=== PATIENT | male | born 1985 | race Caucasian/White ===

== ENCOUNTER 2020-12-04 09:02 | Outpatient (REF) | payer OTHER, SELFPAY ==
[2020-12-04 09:54] LABS: Hematocrit 42.3 % (42-52); Hemoglobin 14.9 g/dl (14.0-18.0); Mean Corpuscular HGB Conc 35.2 g/dl (31.0-36.0); Mean Corpuscular Volume 88.1 fL (80-98); Mean Platelet Volume 10.6 fL (9.4-12.4); Platelet Count 267 X10*3/uL (160-400); Red Cell Distribution Width 11.8 % (11.0-16.0); White Blood Count 6.1 X10*3/uL (4.8-10.8)
[2020-12-04 10:10] LABS: Alanine Aminotransferase 43 U/L (0-40); Albumin Level 4.6 g/dL (3.5-5.0); Alkaline Phosphatase 66 U/L (39-117); Anion Gap 12 (12-20); Aspartate Amino Transferase 31 U/L (5-37); Bilirubin Total 1.8 mg/dL (0.0-1.0); Blood Urea Nitrogen 15 mg/dL (9-16); Calcium 10.1 mg/dL (8.4-10.2); Carbon Dioxide 27 mmol/L (22-29); Chloride 103 mmol/L (96-108); Cholesterol 229 mg/dL; Estimated Glomerular Filt Rate > 60; Glucose Fasting 108 mg/dL (60-99); HDL Cholesterol 47 mg/dL; LDL Cholesterol Calculated 105 mg/dl; Potassium 4.5 mmol/L (3.3-5.1); Sodium 137 mmol/L (135-145); Triglycerides 389 mg/dL
[2020-12-04 13:35] LABS: Creatinine Urine 125.65 mg/dL; Microalbumin Urine < 5.0 mg/L
== END 2020-12-04 09:03 | disposition home or self-care (01) ==
LOC: HO.LAB 09:02
PROVIDERS: PCP Physician Assistant; Visit Provider Physician Assistant
DX: I10 Essential (primary) hypertension (principal)
CPT/HCPCS: 36415; 80053; 80061; 82043; 84443; 85027

== ENCOUNTER 2022-02-24 09:33 | Outpatient (REF) | payer OTHER, SELFPAY ==
[2022-02-24 10:56] LABS: Hematocrit 47.6 % (42.0-52.0); Hemoglobin 16.4 g/dl (14.0-18.0); Mean Corpuscular HGB Conc 34.5 g/dl (31.0-36.0); Mean Corpuscular Hemoglobin 31.2 pg (27.0-33.0); Mean Corpuscular Volume 90.5 fL (80.0-98.0); Mean Platelet Volume 10.7 fL (9.4-12.4); Platelet Count 271 X10*3/uL (160-400); Red Blood Count 5.26 X10*6/uL (4.60-5.80); Red Cell Distribution Width 11.8 % (11.0-16.0); White Blood Count 6.4 X10*3/uL (4.8-10.8)
[2022-02-24 11:27] LABS: Estimated Average Glucose 105 mg/dL; Hemoglobin A1c % 5.3 %
[2022-02-24 11:38] LABS: Alanine Aminotransferase 79 U/L (0-40); Albumin Level 4.7 g/dL (3.5-5.0); Alkaline Phosphatase 62 U/L (39-117); Anion Gap 13 (12-20); Aspartate Amino Transferase 44 U/L (5-37); Bilirubin Total 1.4 mg/dL (0.0-1.0); Blood Urea Nitrogen 16 mg/dL (9-16); Calcium 10.1 mg/dL (8.4-10.2); Carbon Dioxide 30 mmol/L (22-29); Chloride 102 mmol/L (96-108); Cholesterol 277 mg/dL; Estimated Glomerular Filt Rate > 60; Glucose Fasting 107 mg/dL (60-99); HDL Cholesterol 55 mg/dL; LDL Cholesterol Calculated 147 mg/dl; Potassium 4.5 mmol/L (3.3-5.1); Sodium 140 mmol/L (135-145); Total Protein 7.4 g/dL (6.5-8.0); Triglycerides 375 mg/dL
[2022-02-24 12:07] LABS: Creatinine Urine 300.69 mg/dL; Microalbum/Creatinine Ratio Ur 3.3 ug/mg cr
== END 2022-02-24 09:34 | disposition home or self-care (01) ==
LOC: HO.LAB 09:33
PROVIDERS: PCP Physician Assistant; Visit Provider Physician Assistant
DX: I10 Essential (primary) hypertension (principal); R14.0 Abdominal distension (gaseous); E78.2 Mixed hyperlipidemia; E66.09 Other obesity due to excess calories; Z68.30 Body mass index [BMI] 30.0-30.9, adult
CPT/HCPCS: 36415; 80053; 80061; 82043; 83036; 85027

== ENCOUNTER 2022-10-06 11:23 | Outpatient (AMB) | payer OTHER, SELFPAY ==
[2022-10-06 11:24] VITALS: BP 130/96; PULSE 83; O2SAT 96; BMI 31.5
--- NOTE | 2022-10-06 11:24 | A.OFFPC_ITS ---
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 Accompanied by: Self / Same As Patient Allergies cephalexin [From Keflex] Adverse Reaction (Mild, Verified 10/06/22 11:44) Rash sulfamethoxazole [From Bactrim] Adverse Reaction (Verified 10/06/22 11:44) Rash trimethoprim [From Bactrim] Adverse Reaction (Verified 10/06/22 11:44) Rash Medication List - Last Reconciled 10/06/22 by Luis Manuel David PA-C diclofenac sodium 50 mg PO BID 15 days lisinopril 30 mg PO DAILY metoprolol succinate ER 100 mg PO DAILY omeprazole 20 mg PO DAILY 30 days valacyclovir (Valtrex) 500 mg PO BID 6 days Tobacco use date assessed: 10/06/22 Dental Screening Dental Screen Date: 10/06/22 Did you have a dental visit in the last 12 months?: No Did you have a dental problem in the last 6 months where you did not have access to dental care?: No Was dental information given to patient?: No HPI Annual PE HPI Details Patient is a 37-year-old male here today for routine annual physical? Patient has a past medical history significant for obesity, hypertriglyceridemia, generalized anxiety disorder., hypertension. .. Hypertension:? Blood pressure improved today in office.? Continues on lisinopril 30 and metoprolol 100 mg daily.? He feels his anxiety is elevated due to his anxiety.? Monitors blood pressure at home at times and reports 120s to 130 systolic. Otherwise denies any headache, dizziness, shortness of breath on exertion or vision issues. Does report times of anxiety before social events. .. Left knee ligamentous issue:? Has recently had ACL reconstructive surgery on his left knee, currently in physical therapy and returning back to work in near future. .. Concern--> ?Having anxiety worse as of late , also has been reducing his alcohol intake which may be contributing to worsening anxiety. He does speak to his girlfriend about his anxiety as well. Not interested in speaking with a mental therapist at this time. Not interested in daily medication for anxiety though is willing to try a as needed medication .. Vaccines: Up-to-date with tetanus vaccine, declines COVID/ flu vaccine. Laboratory Tests 02/24/22 09:56 AST 44 H ALT 79 H Triglycerides 375 Cholesterol 277 [facility] Social History (Updated 10/06/22 @ 11:47 by Luis Manuel David PA-C) Housing: House Alcohol intake: current Alcohol intake frequency: a few times a week Alcohol type: beer and hard liquor e-Cigarette/Vaping Use: Never Used Second Hand Smoke Exposure: Yes service: No Current occupational status: employed Current occupation: machinest Cognitive needs: No Hearing needs: No Vision needs: No Questionnaire PHQ-9 Over the last 2 weeks, how often have you been bothered by any of the following problems? 1. Little interest or pleasure in doing things: not at all 2. Feeling down, depressed, or hopeless: not at all 3. Trouble falling or staying asleep, or sleeping too much: not at all 4. Feeling tired or having little energy: not at all 5. Poor appetite or overeating: not at all 6. Feeling bad about yourself - or that you are a failure or have let yourself or your family down: not at all 7. Trouble concentrating on things, such as reading the newspaper or watching television: not at all 8. Moving or speaking so slowly that other people could have noticed. Or the opposite - being so fidgety or restless that you have been moving around a lot more than usual: not at all 9. Thoughts that you would be better off or of hurting yourself in some way: not at all Total score: 0 Depression Screening Interpretation: Negative 17568 - PHQ-9 Billing: Yes Source: Developed by Drs. Eliazar English, Manju Pisano, Noé Riley and colleagues, with an educational dorian from [employer]. Thrive Questionnaire Date Thrive assessed: 10/06/22 I am a: Patient What is your living situation today?: I have a steady place to live Within the past 12 months, did the food you bought not last and you didn't have the money to get more?: Never true Within the past 12 months, did you worry whether your food would run out before you got money to buy more?: Never true Do you have trouble paying for medicines?: No Do you have trouble getting transportation to medical appointments?: No Do you have trouble paying your heating and electricity bill?: No Do you have trouble taking care of your child, family member or friend?: No Do you have trouble with day-to-day activities such as bathing, preparing meals, shopping, managing finances, etc.?: No Are you currently unemployed and looking for a job?: No Are you interested in more education?: No Please select the resources that you would like help with: None Currently or been in a relationship where the following occur: no concerns reported AUDIT C Alcohol Use Questionnaire (AUDIT-C) 1. How often do you have a drink containing alcohol?: Monthly or less 2. How many drinks containing alcohol do you have on a typical day when you are drinking?: 1 or 2 3. How often do you have six or more drinks on one occasion?: Never Total Score: 1 RAFITA-7 AMB Questionnaire RAFITA-7 Date RAFITA - 7 assessed: 10/06/22 Feeling nervous, anxious, or on edge: 0 = Not at all Not being able to stop or control worryin = Not at all Worrying too much about different things: 0 = Not at all Trouble relaxin = Not at all Being so restless that it is hard to sit still: 0 = Not at all Becoming easily annoyed or irritable: 0 = Not at all Feeling afraid as if something awful might happen: 0 = Not at all Total RAFITA-7 score (0-4 normal; 5-9 mild; 10-14 moderate; 15-21 severe): 0 Source: Developed by Drs. Eliazar English, Manju Pisano, Noé Riley and colleagues, with an educational dorian from [employer]. RAFITA-7 Assessment Billing RAFITA-7 Assessment Tool: RAFITA-7 Assessment 58906 Review of Systems Const Denies body aches, Denies chills, Denies excessive sweating, Denies fatigue, Denies fever(s) and Denies headache(s) Eyes Denies blurry vision ENT Denies dysphagia, Denies vertigo, Denies dizziness, Denies headache(s), Denies hearing loss and Denies tinnitus Card Denies chest pain, Denies chest pain with activity, Denies syncope, Denies irregular heart rhythm and Denies dyspnea Resp Denies chest congestion, Denies cough, Denies hemoptysis, Denies dyspnea and Denies wheezing GI Denies abdominal pain, Denies melena, Denies hematochezia, Denies coffee ground emesis, Denies dysphagia, Denies diarrhea, Denies nausea and Denies vomiting Denies difficulty urinating, Denies dysuria, Denies urinary frequency, Denies urinary hesitancy and Denies urinary urgency Musc Denies arthralgias, Denies limited range of motion, Denies muscle cramps and Denies muscle weakness Skin/Breast Denies rash and Denies skin ulcer Neuro Denies Abnormal speech present, Denies confusion, Denies vertigo, Denies dizziness, Denies syncope, Denies headache(s), Denies memory loss and Denies seizure-like activity Psych Reports anxiety, Denies confusion, Denies depression, Denies memory loss, Reports panic attacks and Denies paranoia Endo Denies excessive sweating, Denies fatigue, Denies flushing, Denies polydipsia and Denies polyuria Aller/Immun Denies wheezing Physical exam (Primary Care) Vital Signs: Last Vital Signs Pulse 83 10/06/22 11:24 BP 130/96 H 10/06/22 11:24 Pulse Ox 96 10/06/22 11:24 Oxygen Delivery Method Room Air 10/06/22 11:24 BMI result Body Mass Index 31.5 BMI Assessment/Plan discussion: High Tobacco/Smoking Status: Tobacco use Status Tobacco use date assessed 10/06/22 10/06/22 11:29 Patient Tobacco Use Status 10/06/22 11:47 e-Cigarette/Vaping Use Never Used 10/06/22 11:47 PHQ-9: PHQ-9 Score PHQ-9: Total score 0 10/06/22 11:51 Depression Screening Interpretation: Negative Thrive Assessment: Date of Thrive Assessment Date Thrive assessed 10/06/22 10/06/22 11:29 Currently or been in a relationship where the following occur: no concerns reported Const Other: Obese General: cooperative, comfortable, no acute distress, alert and awake; No confusion Orientation/consciousness: oriented to person, oriented to place, patient oriented x3 and No confusion HENMT Head: Yes normocephalic Ears: external ears normal and TM's normal bilaterally Face and sinus: No sinus tenderness Mouth: Normal oral and palatal mucosa present and tongue normal Teeth and gingiva: dentition normal and gingiva normal Throat: Yes posterior oropharynx normal, Yes tonsils normal and Yes uvula midline Eyes Conjunctivae: conjunctivae normal Sclerae: sclerae normal Pupils: Equal, round and reactive pupils present EOM: EOMs intact bilaterally Direct Ophthalmoscopy: No no photophobia Neck Neck: Yes no lymphadenopathy, No tender and Yes no JVD Thyroid: Thyroid normal Carotids: no bruits Chest Chest palpation & inspection: no tenderness Resp Effort & Inspection: normal respiratory effort, no audible wheezes, not labored and no stridor Auscultation: no crackles, no rales, no rhonchi and no wheezes Cardio Jugular venous distension: no JVD Rate: regular rate, not bradycardic and not tachycardic Rhythm: regular rhythm Bruits: no carotid bruits Peripheral pulses: Peripheral pulses 2+ throughout GI Inspection: Yes normal to inspection, No abdominal wall ecchymosis and No visible herniation Palpation (GI): Soft to palpation, nontender, no guarding, not rigid and No hepa tosplenomegaly present Auscultation: normoactive bowel sounds General: Yes no CVA tenderness Back/Spine/Pelvis Back: no CVA tenderness and No back tenderness Cervical Spine: cervical ROM normal Thoracic/Lumbar Spine: thoracic and lumbar spine normal to inspection, straight leg raise negative bilaterally, No thoraco-lumbar ROM limited and No lumbar spinal tenderness Skin Lesions: no lesions Rashes: no rashes Wounds: no wounds Neuro General: oriented to person, oriented to place, patient oriented x3, CN's II-XI intact bilaterally and No confusion Cranial nerves: Yes Equal, round and reactive pupils present and Yes Normal accommodation reflex present Cognition (Neuro): normal cognition Speech: No Abnormal speech present Gait exam (Neuro): Normal gait present Motor exam (neuro): 5/5 motor strength present throughout Extrem Right upper extremity: full ROM; no cyanosis Left upper extremity: full ROM; no cyanosis Right lower extremity: no edema Left lower extremity: no edema Psych Appearance: grossly normal Mental Status: mental status grossly normal Affect: normal affect Attitude: cooperative Thought process: Normal thought process present Assessment and Plan Assessment & Plan (1) Annual physical exam: Code(s): Z00.00 - Encounter for general adult medical examination without abnormal findings (2) RAFITA (generalized anxiety disorder): Code(s): F41.1 - Generalized anxiety disorder Plan: Patient seems to be suffering with social anxiety. He does report feeling very anxious, sweating and palpitations before social events. He is willing to try as-needed medication for his social anxiety. Not interested in speak with a mental health therapist at this time. (3) HTN (hypertension): Code(s): I10 - Essential (primary) hypertension Qualifiers: Hypertension type: primary hypertension Qualified Code(s): I10 - Essential (primary) hypertension Plan: Patient's blood pressure slightly elevated today in office. Continues on lisinopril 30 mg Toprol 50. Reports that home blood pressures have been stable, does have an element of white coat hypertension related to his social anxiety. Goal blood pressures remain below 140/90 (4) HLD (hyperlipidemia): Code(s): E78.5 - Hyperlipidemia, unspecified Qualifiers: Hyperlipidemia type: mixed hyperlipidemia Qualified Code(s): E78.2 - Mixed hyperlipidemia Plan: Most recent lipid panel showing elevated total cholesterol and borderline high triglycerides. May be related to his previous alcohol intake. Has reduced his alcohol intake. Will continue to follow fasting lipids with goal total cholesterol to be below 200 (5) Social anxiety disorder: Code(s): F40.10 - Social phobia, unspecified Plan: As above (6) Obese: Code(s): E66.9 - Obesity, unspecified Qualifiers: Body mass index: BMI 30.0-30.9 Obesity classification: adult class 1 (BMI 30 - 34.9) Obesity type: due to excess calories Serious obesity comorbidity presence: without serious comorbidity Qualified Code(s): E66.09 - Other obesity due to excess calories; Z68.30 - Body mass index [BMI]30.0-30.9, adult Plan: Patient does understand his BMI is over 30 will work on being more physically active and adapting to better eating habits to reduce his weight Orders: Orders Comprehensive [facility]pex. Panel Fast Today I10 - Essential (primary) hypertension Lipid Panel Today E78.2 - Mixed hyperlipidemia Microalbumin, Random (w Creat) Today I10 - Essential (primary) hypertension Complete Blood Count no Diff Today I10 - Essential (primary) hypertension Medications: New hydroxyzine HCl 10 mg PO DAILY 10 days PRN 10 tabs 0RF anxiety F40.10 - Social phobia, unspecified, F41.9 - Anxiety disorder, unspecified Refilled valacyclovir (Valtrex) 500 mg PO BID 6 days 12 tabs 0RF B00.9 - Herpesviral infection, unspecified lisinopril 30 mg PO DAILY 90 tabs 1RF I10 - Essential (primary) hypertension metoprolol succinate ER 100 mg PO DAILY 90 tabs 1RF I10 - Essential (primary) hypertension Coding Level of Care Code Est Pt Prev Care [id number]) Diagnoses Annual physical exam Z00.00 RAFITA (generalized anxiety disorder) F41.1 HTN (hypertension) I10 Hypertension type: primary hypertension HLD (hyperlipidemia) E78.2 Hyperlipidemia type: mixed hyperlipidemia Social anxiety disorder F40.10 Obese E66.09; Z68.30 Body mass index: BMI 30.0-30.9 Obesity classification: adult class 1 (BMI 30 - 34.9) Obesity type: due to excess calories Serious obesity comorbidity presence: without serious comorbidity Additional Codes RAFITA-7 Assessment Billing - RAFITA-7 Assessment Tool: RAFITA-7 Assessment 28905 ([id number])
== END 2022-10-06 12:08 | disposition home or self-care (01) ==
PROVIDERS: Visit Provider Physician Assistant
DX: Z00.00 Encounter for general adult medical examination without abnormal findings (principal); I10 Essential (primary) hypertension; E66.09 Other obesity due to excess calories; Z68.30 Body mass index [BMI] 30.0-30.9, adult; F41.1 Generalized anxiety disorder; E78.2 Mixed hyperlipidemia; F40.10 Social phobia, unspecified
CPT/HCPCS: 99395

== ENCOUNTER 2023-04-03 09:28 | Outpatient (REF) | payer OTHER, SELFPAY ==
[2023-04-03 09:52] LABS: Hematocrit 45.3 % (42.0-52.0); Hemoglobin 15.9 g/dl (14.0-18.0); Mean Corpuscular HGB Conc 35.1 g/dl (31.0-36.0); Mean Corpuscular Hemoglobin 31.1 pg (27.0-33.0); Mean Corpuscular Volume 88.5 fL (80.0-98.0); Mean Platelet Volume 10.4 fL (9.4-12.4); Platelet Count 260 X10*3/uL (160-400); Red Blood Count 5.12 X10*6/uL (4.60-5.80); Red Cell Distribution Width 11.5 % (11.0-16.0); White Blood Count 7.1 X10*3/uL (4.8-10.8)
[2023-04-03 10:49] LABS: Alanine Aminotransferase 44 U/L (0-40); Albumin Level 4.5 g/dL (3.5-5.0); Alkaline Phosphatase 62 U/L (39-117); Anion Gap 12 (12-20); Aspartate Amino Transferase 29 U/L (5-37); Bilirubin Total 1.1 mg/dL (0.0-1.0); Blood Urea Nitrogen 19 mg/dL (9-16); Calcium 9.7 mg/dL (8.4-10.2); Carbon Dioxide 26 mmol/L (22-29); Chloride 104 mmol/L (96-108); Cholesterol 241 mg/dL (<200); Estimated Glomerular Filt Rate > 60; Glucose Fasting 113 mg/dL (60-99); HDL Cholesterol 51 mg/dL (>40); LDL Cholesterol Calculated 112 mg/dL (<100); Potassium 4.2 mmol/L (3.3-5.1); Sodium 138 mmol/L (135-145); Total Protein 7.1 g/dL (6.5-8.0); Triglycerides 391 mg/dL (<150)
[2023-04-03 11:25] LABS: Creatinine Urine 211.59 mg/dL; Microalbum/Creatinine Ratio Ur 2.8 ug/mg cr (<30)
== END 2023-04-03 09:29 | disposition home or self-care (01) ==
LOC: HO.LAB 09:28
PROVIDERS: PCP Physician Assistant; Visit Provider Physician Assistant
DX: I10 Essential (primary) hypertension (principal); E78.2 Mixed hyperlipidemia
CPT/HCPCS: 36415; 80053; 80061; 82043; 82570; 85027

== ENCOUNTER 2023-04-09 08:09 | Outpatient (AMB) | payer OTHER, SELFPAY ==
--- NOTE | 2023-04-09 07:47 | A.OFFPC_ITS ---
Intake Visit Reasons: f/u HTN/ [phone] Allergies cephalexin [From Keflex] Adverse Reaction (Mild, Verified 10/06/22 11:44) Rash sulfamethoxazole [From Bactrim] Adverse Reaction (Verified 10/06/22 11:44) Rash trimethoprim [From Bactrim] Adverse Reaction (Verified 10/06/22 11:44) Rash Medication List - Last Reconciled 04/09/23 by Luis Manuel David PA-C diclofenac sodium 50 mg PO BID 15 days hydroxyzine HCl 10 mg PO DAILY 20 days lisinopril 30 mg PO DAILY metoprolol succinate ER 100 mg PO DAILY omeprazole 20 mg PO DAILY 30 days valacyclovir (Valtrex) 500 mg PO BID 6 days Tobacco use date assessed: 10/06/22 Dental Screening Dental Screen Date: 04/09/23 Did you have a dental visit in the last 12 months?: Yes Did you have a dental problem in the last 6 months where you did not have access to dental care?: No Was dental information given to patient?: Patient has dentist HPI f/u HTN/ [phone] HPI Details Patient is a 37-year-old male being evaluated today via telephone only. Patient has a past medical history significant for hypertension, hyperlipidemia, GERD and generalized anxiety disorder.. .. Hypertension: Patient's blood pressure reported as stable. He continues on lisinopril and metoprolol. .. Hyperlipidemia: Patient's most recent fasting lipid panel showing much improved total cholesterol, triglycerides remain elevated. He reports some dietary indiscretion over the holidays though would like to continue following his lipid panel and work on dietary and lifestyle modifications. .. Anxiety: He has used hydroxyzine a few times for sleep. He does report recently going to a large venue for [employer] and had uncontrollable anxiety. He is willing to try lorazepam 0.5 mg on a very limited p.r.n. basis for acute panic attack. Laboratory Tests 02/24/22 02/24/22 02/24/22 09:56 09:56 09:56 RBC Creatinine Fasting Glucose 107 H Hemoglobin A1c % 5.3 ALT Triglycerides 375 Cholesterol 277 LDL Cholesterol, C alc 02/24/22 04/03/23 04/03/23 09:56 09:42 09:42 RBC Creatinine Fasting Glucose 113 H Hemoglobin A1c % ALT 44 H Triglycerides Cholesterol 241 H LDL Cholesterol, C alc 147 04/03/23 04/03/23 04/03/23 09:42 09:42 09:42 RBC 5.12 Creatinine 1.10 Fasting Glucose Hemoglobin A1c % ALT Triglycerides 391 H Cholesterol LDL Cholesterol, C alc 112 H [facility] Social History Housing: House Alcohol intake: current Alcohol intake frequency: a few times a week Alcohol type: beer and hard liquor e-Cigarette/Vaping Use: Never Used Second Hand Smoke Exposure: Yes service: No Current occupational status: employed Current occupation: machinest Cognitive needs: No Hearing needs: No Vision needs: No Questionnaire PHQ-9 Over the last 2 weeks, how often have you been bothered by any of the following problems? 1. Little interest or pleasure in doing things: not at all 2. Feeling down, depressed, or hopeless: not at all 3. Trouble falling or staying asleep, or sleeping too much: not at all 4. Feeling tired or having little energy: not at all 5. Poor appetite or overeating: not at all 6. Feeling bad about yourself - or that you are a failure or have let yourself or your family down: not at all 7. Trouble concentrating on things, such as reading the newspaper or watching television: not at all 8. Moving or speaking so slowly that other people could have noticed. Or the opposite - being so fidgety or restless that you have been moving around a lot more than usual: not at all 9. Thoughts that you would be better off or of hurting yourself in some way: not at all Total score: 0 Depression Screening Interpretation: Negative Depression Screening Done: Yes 86537 - PHQ-9 Billing: Yes Source: Developed by Drs. Eliazar English, Manju Pisano, Noé Riley and colleagues, with an educational dorian from [employer]. Thrive Questionnaire Date Thrive assessed: 04/09/23 I am a: Patient What is your living situation today?: I have a steady place to live Within the past 12 months, did the food you bought not last and you didn't have the money to get more?: Never true Within the past 12 months, did you worry whether your food would run out before you got money to buy more?: Never true Do you have trouble paying for medicines?: No Do you have trouble getting transportation to medical appointments?: No Do you have trouble paying your heating and electricity bill?: No Do you have trouble taking care of your child, family member or friend?: No Do you have trouble with day-to-day activities such as bathing, preparing meals, shopping, managing finances, etc.?: No Are you currently unemployed and looking for a job?: No Are you interested in more education?: No Please select the resources that you would like help with: None Currently or been in a relationship where the following occur: no concerns reported AUDIT C Alcohol Use Questionnaire (AUDIT-C) 1. How often do you have a drink containing alcohol?: Monthly or less 2. How many drinks containing alcohol do you have on a typical day when you are drinking?: 1 or 2 3. How often do you have six or more drinks on one occasion?: Never Total Score: 1 RAFITA-7 AMB Questionnaire RAFITA-7 Date RAFITA - 7 assessed: 04/09/23 Feeling nervous, anxious, or on edge: 0 = Not at all Not being able to stop or control worryin = Not at all Worrying too much about different things: 0 = Not at all Trouble relaxin = Not at all Being so restless that it is hard to sit still: 0 = Not at all Becoming easily annoyed or irritable: 0 = Not at all Feeling afraid as if something awful might happen: 0 = Not at all Total RAFITA-7 score (0-4 normal; 5-9 mild; 10-14 moderate; 15-21 severe): 0 Source: Developed by Drs. Eliazar English, Manju Pisano, Noé Riley and colleagues, with an educational dorian from [employer]. RAFITA-7 Assessment Billing RAFITA-7 Assessment Tool: RAFITA-7 Assessment 89548 Review of Systems Const Denies headache(s) Eyes Denies loss of vision ENT Denies vertigo, Denies dizziness, Denies headache(s) and Denies sore throat Card Denies chest pain, Denies leg edema and Denies lightheadedness Resp Denies cough, Denies hemoptysis and Denies wheezing GI Denies abdominal pain, Denies melena, Denies constipation, Denies diarrhea and Denies vomiting Denies dysuria, Denies urinary frequency and Denies urinary urgency Musc Denies arthralgias, Denies joint swelling, Denies numbness and Denies tingling Neuro Denies behavioral changes, Denies vertigo, Denies dizziness, Denies headache(s), Denies loss of vision, Denies memory loss, Denies numbness and Denies tingling Psych Reports anxiety, Denies behavioral changes, Denies depression, Denies memory loss and Denies panic attacks Kai/Lymph Denies easy bleeding and Denies easy bruising Aller/Immun Denies wheezing Physical exam (Primary Care) Tobacco/Smoking Status: Tobacco use Status Tobacco use date assessed 10/06/22 04/09/23 07:49 e-Cigarette/Vaping Use Never Used 04/09/23 07:49 Depression Screening Interpretation: Negative Thrive Assessment: Date of Thrive Assessment Date Thrive assessed 10/06/22 04/09/23 07:49 Currently or been in a relationship where the following occur: no concerns reported Telehealth Telehealth Location of provider rendering services: other Location of patient: address on file Patient Identification confirmed using: Name, : Yes Telehealth method: voice only Patient verbally consented to treatment: Yes Patient verbally consented to billing insurance company: Yes Patient informed of any privacy concerns related to visit: Yes Minutes spent on Phone/Video with Pt.: 11 Assessment and Plan Assessment & Plan (1) HTN (hypertension): Code(s): I10 - Essential (primary) hypertension Qualifiers: Hypertension type: primary hypertension Qualified Code(s): I10 - Essential (primary) hypertension Plan: As per HPI patient reports blood pressures are stable. No symptoms of high blood pressure. Will continue his current dose of lisinopril and metoprolol. Blood pressures to remain below 140/90. (2) HLD (hyperlipidemia): Code(s): E78.5 - Hyperlipidemia, unspecified Qualifiers: Hyperlipidemia type: mixed hyperlipidemia Qualified Code(s): E78.2 - Mixed hyperlipidemia Plan: Patient continues to have elevated total cholesterol. Not interested in starting medication at this time will like to work on lifestyle and dietary modifications. (3) Social anxiety disorder: Code(s): F40.10 - Social phobia, unspecified Plan: Patient reports he still suffers at time panic disorder associated with being in large crowds. He is interested in having lorazepam on hand to use for emergencies. Does use hydroxyzine 10 mg and helps him sleep. (4) Impaired glucose metabolism: Code(s): R73.09 - Other abnormal glucose Plan: Patient's fasting blood sugar at 113. He does report dietary indiscretion as of lately. Has had slightly elevated fasting blood sugar over the past few years. Will check an A1c Orders: Orders Comprehensive [place]. Panel Fast Today I10 - Essential (primary) hypertension Complete Blood Count no Diff Today I10 - Essential (primary) hypertension Microalbumin, Random (w Creat) Today I10 - Essential (primary) hypertension Hemoglobin A1c Today R73.09 - Other abnormal glucose Lipid Panel Today E78.2 - Mixed hyperlipidemia Medications: New lorazepam 0.5 mg PO DAILY 5 days PRN 5 tabs 0RF anxiety F40.10 - Social phobia, unspecified Refilled diclofenac sodium 50 mg PO BID 15 days 30 tabs 0RF G89.29 - Other chronic pain, M25.562 - Pain in left knee lisinopril 30 mg PO DAILY 90 tabs 1RF I10 - Essential (primary) hypertension metoprolol succinate ER 100 mg PO DAILY 90 tabs 1RF I10 - Essential (primary) hypertension omeprazole 20 mg PO DAILY 30 days 30 caps 3RF K21.9 - Gastro-esophageal reflux disease without esophagitis Coding Level of Care Code Tele Est Pt Level 4 (96538) Diagnoses Primary hypertension I10 Hypertension type: primary hypertension Mixed hyperlipidemia E78.2 Hyperlipidemia type: mixed hyperlipidemia Social anxiety disorder F40.10 Impaired glucose metabolism R73.09 Additional Codes RAFITA-7 Assessment Billing - RAFITA-7 Assessment Tool: RAFITA-7 Assessment 24353 ([id number])
== END 2023-04-09 08:45 | disposition home or self-care (01) ==
LOC: HO.HMGH 08:09
PROVIDERS: PCP Physician Assistant; Visit Provider Physician Assistant
DX: I10 Essential (primary) hypertension (principal); E78.2 Mixed hyperlipidemia; F40.10 Social phobia, unspecified; R73.09 Other abnormal glucose
CPT/HCPCS: 99214

== ENCOUNTER 2023-12-02 09:38 | Outpatient (AMB) | payer OTHER, SELFPAY ==
[2023-12-02 10:11] VITALS: BP 122/84; PULSE 73; O2SAT 98; BMI 30.7
--- NOTE | 2023-12-02 10:11 | MHC.PC.OV ---
Vital Signs 12/02/23 10:11 Height 5 ft 9 in Weight 208 lb 2 oz BMI 30.7 BP 122/84 Blood Pressure Location Lt brachial Position Sitting Pulse 73 Pulse Source Pulse Oximeter Pulse Oximetry (%) 98 Oxygen Delivery Method Room Air Intake Visit Reasons: annual exam Intake Note: Patient is here today for a physical. Marketing Information Analyst Required: No Accompanied by: Self / Same As Patient Allergies cephalexin [From Keflex] Adverse Reaction (Mild, Verified 12/02/23 10:19) Rash sulfamethoxazole [From Bactrim] Adverse Reaction (Verified 12/02/23 10:19) Rash trimethoprim [From Bactrim] Adverse Reaction (Verified 12/02/23 10:19) Rash Medication List - Last Reconciled 12/02/23 by Luis Manuel David PA-C diclofenac sodium 50 mg PO BID 15 days hydroxyzine HCl 10 mg PO DAILY 20 days lisinopril 30 mg PO DAILY lorazepam 0.5 mg PO DAILY PRN 5 days metoprolol succinate ER 100 mg PO DAILY omeprazole 20 mg PO DAILY 30 days valacyclovir (Valtrex) 500 mg PO BID 6 days Tobacco use date assessed: 12/02/23 Dental Screening Dental Screen Date: 04/09/23 HPI annual exam HPI Details Patient is a 38-year-old male here today for routine annual physical. Patient has a past medical history significant for hypertension, hyperlipidemia, GERD and generalized anxiety disorder.. Concern--> he reports often having bilateral ear congestion and throat discomfort. He reports he does work in a [employer]. He otherwise does not feel sick. He is not consistent with the use of allergy medication. .. Hypertension: Patient's blood pressure reported as stable. He continues on lisinopril and metoprolol. He has reduced his alcohol intake significantly and now feels much better. He believes this is really helped his blood pressure readings. .. Hyperlipidemia: Patient's most recent fasting lipid panel showing much improved total cholesterol, triglycerides remain elevated. He reports some dietary indiscretion over the holidays though would like to continue following his lipid panel and work on dietary and lifestyle modifications. .. Anxiety: He has used hydroxyzine a few times for sleep. He does report recently going to a large venue for 's [employer] party and had uncontrollable anxiety. He is willing to try lorazepam 0.5 mg on a very limited p.r.n. basis for acute panic attack. Vaccines: Up-to-date with tetanus vaccine, declines COVID/ flu vaccine. [facility] Social History (Updated 12/02/23 @ 10:24 by Luis Manuel David PA-C) Housing: House Alcohol intake: current Alcohol intake frequency: a few times a month Alcohol type: beer and hard liquor Patient Tobacco Use Status: Never used Tobacco e-Cigarette/Vaping Use: Never Used Second Hand Smoke Exposure: Yes Substance Use Type: Marijuana service: No Current occupational status: employed Current occupation: machinest Cognitive needs: No Hearing needs: No Vision needs: No Questionnaire PHQ-9 Over the last 2 weeks, how often have you been bothered by any of the following problems? 1. Little interest or pleasure in doing things: not at all 2. Feeling down, depressed, or hopeless: not at all 3. Trouble falling or staying asleep, or sleeping too much: several days 4. Feeling tired or having little energy: several days 5. Poor appetite or overeating: several days 6. Feeling bad about yourself - or that you are a failure or have let yourself or your family down: not at all 7. Trouble concentrating on things, such as reading the newspaper or watching television: not at all 8. Moving or speaking so slowly that other people could have noticed. Or the opposite - being so fidgety or restless that you have been moving around a lot more than usual: not at all 9. Thoughts that you would be better off or of hurting yourself in some way: not at all Total score: 3 Depression Screening Interpretation: Negative Depression Screening Done: Yes 52874 - PHQ-9 Billing: Yes Source: Developed by Drs. Eliazar English, Manju Pisano, Noé Riley and colleagues, with an educational dorian from [employer]. Thrive Questionnaire Date Thrive assessed: 12/02/23 I am a: Patient What is your living situation today?: I have a steady place to live Within the past 12 months, did the food you bought not last and you didn't have the money to get more?: I choose not to answer this question Within the past 12 months, did you worry whether your food would run out before you got money to buy more?: I choose not to answer this question Do you have trouble paying for medicines?: I choose not to answer this question Do you have trouble getting transportation to medical appointments?: No Do you have trouble paying your heating and electricity bill?: No Do you have trouble taking care of your child, family member or friend?: No Do you have trouble with day-to-day activities such as bathing, preparing meals, shopping, managing finances, etc.?: No Are you currently unemployed and looking for a job?: No Are you interested in more education?: No Please select the resources that you would like help with: None Currently or been in a relationship where the following occur: No concerns reported THRIVE Score: 0 AUDIT C Alcohol Use Questionnaire (AUDIT-C) 1. How often do you have a drink containing alcohol?: 2-3 times a week 2. How many drinks containing alcohol do you have on a typical day when you are drinking?: 1 or 2 3. How often do you have six or more drinks on one occasion?: Less than monthly Total Score: 4 RAFITA-7 AMB Questionnaire RAFITA-7 Date RAFITA - 7 assessed: 12/02/23 Feeling nervous, anxious, or on edge: 1 = Several days Not being able to stop or control worryin = Several days Worrying too much about different things: 1 = Several days Trouble relaxin = Several days Being so restless that it is hard to sit still: 0 = Not at all Becoming easily annoyed or irritable: 1 = Several days Feeling afraid as if something awful might happen: 0 = Not at all Total RAFITA-7 score (0-4 normal; 5-9 mild; 10-14 moderate; 15-21 severe): 5 Source: Developed by Drs. Eliazar English, Manju Pisano, Noé Riley and colleagues, with an educational dorian from [employer]. RAFITA-7 Assessment Billing RAFITA-7 Assessment Tool: RAFITA-7 Assessment 04991 Review of Systems Const Denies body aches, Denies chills, Denies excessive sweating, Denies fatigue, Denies fever(s) and Denies headache(s) Eyes Denies blurry vision ENT Denies dysphagia, Denies vertigo, Denies dizziness, Denies headache(s), Denies hearing loss and Denies tinnitus Card Denies chest pain, Denies chest pain with activity, Denies syncope, Denies irregular heart rhythm and Denies dyspnea Resp Denies chest congestion, Denies cough, Denies hemoptysis, Denies dyspnea and Denies wheezing GI Denies abdominal pain, Denies melena, Denies hematochezia, Denies coffee ground emesis, Denies dysphagia, Denies diarrhea, Denies nausea and Denies vomiting Denies difficulty urinating, Denies dysuria, Denies urinary frequency, Denies urinary hesitancy and Denies urinary urgency Musc Denies arthralgias, Denies limited range of motion, Denies muscle cramps and Denies muscle weakness Skin/Breast Denies rash and Denies skin ulcer Neuro Denies Abnormal speech present, Denies confusion, Denies vertigo, Denies dizziness, Denies syncope, Denies headache(s), Denies memory loss and Denies seizure-like activity Psych Denies anxiety, Denies confusion, Denies depression, Denies memory loss, Denies panic attacks and Denies paranoia Endo Denies excessive sweating, Denies fatigue, Denies flushing, Denies polydipsia and Denies polyuria Aller/Immun Denies wheezing Physical exam (Primary Care) Vital Signs: Last Vital Signs Pulse 73 12/02/23 10:11 BP 122/84 12/02/23 10:11 Pulse Ox 98 12/02/23 10:11 Oxygen Delivery Method Room Air 12/02/23 10:11 BMI result Body Mass Index 30.7 Tobacco/Smoking Status: Tobacco use Status Tobacco use date assessed 12/02/23 12/02/23 10:18 Patient Tobacco Use Status Never used Tobacco 12/02/23 10:24 e-Cigarette/Vaping Use Never Used 12/02/23 10:24 PHQ-9: PHQ-9 Score PHQ-9: Total score 3 12/02/23 10:25 Depression Screening Interpretation: Negative Thrive Assessment: Date of Thrive Assessment Date Thrive assessed 12/02/23 12/02/23 10:18 Currently or been in a relationship where the following occur: No concerns reported Const General: cooperative, comfortable, no acute distress, alert and awake; No confusion Orientation/consciousness: oriented to person, oriented to place, patient oriented x3 and No confusion HENMT Head: Yes normocephalic Ears: external ears normal and TM's normal bilaterally Face and sinus: No sinus tenderness Mouth: Normal oral and palatal mucosa present and tongue normal Teeth and gingiva: dentition normal and gingiva normal Throat: Yes posterior oropharynx normal, Yes tonsils normal and Yes uvula midline Eyes Conjunctivae: conjunctivae normal Sclerae: sclerae normal Pupils: Equal, round and reactive pupils present EOM: EOMs intact bilaterally Direct Ophthalmoscopy: No no photophobia Neck Neck: Yes no lymphadenopathy, No tender and Yes no JVD Thyroid: Thyroid normal Carotids: no bruits Chest Chest palpation & inspection: no tenderness Resp Effort & Inspection: normal respiratory effort, no audible wheezes, not labored and no stridor Auscultation: no crackles, no rales, no rhonchi and no wheezes Cardio Jugular venous distension: no JVD Rate: regular rate, not bradycardic and not tachycardic Rhythm: regular rhythm Bruits: no carotid bruits Peripheral pulses: Peripheral pulses 2+ throughout GI Inspection: Yes normal to inspection, No abdominal wall ecchymosis and No visible herniation Palpation (GI): Soft to palpation, nontender, no guarding, not rigid and No hepatosplenomegaly present Auscultation: normoactive bowel sounds General: Yes no CVA tenderness Back/Spine/Pelvis Back: no CVA tenderness and No back tenderness Cervical Spine: cervical ROM normal Thoracic/Lumbar Spine: thoracic and lumbar spine normal to inspection, straight leg raise negative bilaterally, No thoraco-lumbar ROM limited and No lumbar spinal tenderness Skin Lesions: no lesions Rashes: no rashes Wounds: no wounds Neuro General: oriented to person, oriented to place, patient oriented x3, CN's II-XI intact bilaterally and No confusion Cranial nerves: Yes Equal, round and reactive pupils present and Yes Normal accommodation reflex present Cognition (Neuro): normal cognition Speech: No Abnormal speech present Gait exam (Neuro): Normal gait present Motor exam (neuro): 5/5 motor strength present throughout Extrem Right upper extremity: full ROM; no cyanosis Left upper extremity: full ROM; no cyanosis Right lower extremity: no edema Left lower extremity: no edema Psych Appearance: grossly normal Mental Status: mental status grossly normal Affect: normal affect Attitude: cooperative Thought process: Normal thought process present Assessment and Plan Assessment & Plan (1) Annual physical exam: Code(s): Z00.00 - Encounter for general adult medical examination without abnormal findings (2) HTN (hypertension): Code(s): I10 - Essential (primary) hypertension Qualifiers: Hypertension type: primary hypertension Qualified Code(s): I10 - Essential (primary) hypertension Plan: As per HPI patient reports blood pressures are stable. He has reduced his drinking and feels it has helped his blood pressure.. No symptoms of high blood pressure. Will continue his current dose of lisinopril and metoprolol. Blood pressures to remain below 140/90. (3) HLD (hyperlipidemia): Code(s): E78.5 - Hyperlipidemia, unspecified Qualifiers: Hyperlipidemia type: mixed hyperlipidemia Qualified Code(s): E78.2 - Mixed hyperlipidemia Plan: Will continue to follow fasting lipid panel. Has lost weight and reduce his drinking and feels this may help his cholesterol. Goal LDL to be below 160 and goal total cholesterol to be below 200 (4) Social anxiety disorder: Code(s): F40.10 - Social phobia, unspecified Plan: Patient reports he still suffers at time panic disorder associated with being in large crowds. He is interested in having lorazepam on hand to use for emergencies. Does use hydroxyzine 10 mg and helps him sleep. (5) Impaired glucose metabolism: Code(s): R73.09 - Other abnormal glucose Plan: Patient's fasting blood sugar at 113. He does report dietary indiscretion as of lately. Has had slightly elevated fasting blood sugar over the past few years. Will check an A1c (6) Allergy to environmental factors: Code(s): Z91.09 - Other allergy status, other than to drugs and biological substances Plan: Advised on use of allergy medication daily. He seems that he does have an environmental allergy. Medications: Refilled lorazepam 0.5 mg PO DAILY PRN 5 tabs 0RF anxiety 5 days F40.10 - Social phobia, unspecified valacyclovir (Valtrex) 500 mg PO BID 12 tabs 0RF 6 days B00.9 - Herpesviral infection, unspecified hydroxyzine HCl 10 mg PO DAILY 20 tabs 3RF anxiety 20 days F40.10 - Social phobia, unspecified, F41.9 - Anxiety disorder, unspecified omeprazole 20 mg PO DAILY 30 caps 3RF 30 days K21.9 - Gastro-esophageal reflux disease without esophagitis Patient Instructions: Goal: Blood pressure to remain below 140/90 Barriers: Adherence to physical activity and healthy eating habits Coding Level of Care Code Est Pt Prev Care 18-39y([id number]) Diagnoses Annual physical exam Z00.00 Primary hypertension I10 Hypertension type: primary hypertension Mixed hyperlipidemia E78.2 Hyperlipidemia type: mixed hyperlipidemia Social anxiety disorder F40.10 Impaired glucose metabolism R73.09 Allergy to environmental factors Z91.09 Additional Codes RAFITA-7 Assessment Billing - RAFITA-7 Assessment Tool: RAFITA-7 Assessment 50943 ([id number])
== END 2023-12-02 10:46 | disposition home or self-care (01) ==
PROVIDERS: PCP Physician Assistant; Visit Provider Physician Assistant
DX: Z00.00 Encounter for general adult medical examination without abnormal findings (principal); I10 Essential (primary) hypertension; E78.2 Mixed hyperlipidemia; F40.10 Social phobia, unspecified; R73.09 Other abnormal glucose; Z91.09 Other allergy status, other than to drugs and biological substances
CPT/HCPCS: 99395

== ENCOUNTER 2024-06-21 15:50 | Outpatient (AMB) | payer BC, SELFPAY ==
[2024-06-21 15:56] VITALS: BP 122/82; PULSE 80; TEMP 36.2; O2SAT 97; BMI 32.2
--- NOTE | 2024-06-21 15:56 | A.OFFPC_ITS ---
Vital Signs 06/21/24 15:56 Height 5 ft 9 in Weight 218 lb 6 oz BMI 32.2 BP 122/82 Blood Pressure Location Lt brachial Position Sitting Pulse 80 Pulse Source Pulse Oximeter Temp 97.1 F Temp Source Temporal Artery Scan Pulse Oximetry (%) 97 Oxygen Delivery Method Room Air Intake Visit Reasons: f/u htn Clearing Supervisor Required: No Accompanied by: Self / Same As Patient Allergies cephalexin [From Keflex] Adverse Reaction (Mild, Verified 06/21/24 16:05) Rash sulfamethoxazole [From Bactrim] Adverse Reaction (Verified 06/21/24 16:05) Rash trimethoprim [From Bactrim] Adverse Reaction (Verified 06/21/24 16:05) Rash Medication List - Last Reconciled 06/21/24 by Luis Manuel David PA-C diclofenac sodium 50 mg PO BID 15 days hydroxyzine HCl 10 mg PO DAILY 20 days lisinopril 30 mg PO DAILY lorazepam 1 mg PO DAILY PRN 5 days lorazepam 0.5 mg PO DAILY PRN 5 days metoprolol succinate ER 100 mg PO DAILY omeprazole 20 mg PO DAILY 30 days valacyclovir (Valtrex) 500 mg PO BID 6 days Tobacco use date assessed: 06/21/24 Dental Screening Dental Screen Date: 04/09/23 HPI f/u htn HPI0 Details Patient is a 39-year-old male here today for a follow-up visit. Patient has a past medical history significant for hypertension, hyperlipidemia, GERD and generalized anxiety disorder.. .. Hypertension: Patient's blood pressure reported as stable. He continues on lisinopril and metoprolol. He has reduced his alcohol intake significantly and now feels much better. He believes this is really helped his blood pressure readings. .. Hyperlipidemia: Patient's most recent fasting lipid panel showing much improved total cholesterol, triglycerides remain elevated. He reports some dietary indiscretion over the holidays though would like to continue following his lipid panel and work on dietary and lifestyle modifications. .. Anxiety: He has used hydroxyzine a few times for sleep. He does report recently going to a large venue for [employer]s [employer] and had uncontrollable anxiety. He reports low-dose lorazepam has been helpful on a very limited basis particularly to help him sleep on restless nights. [facility] Social History Housing: House Alcohol intake: current Alcohol intake frequency: a few times a month Alcohol type: beer and hard liquor Patient Tobacco Use Status: Never used Tobacco e-Cigarette/Vaping Use: Never Used Second Hand Smoke Exposure: Yes Substance Use Type: Marijuana service: No Current occupational status: employed Current occupation: machinest Cognitive needs: No Hearing needs: No Vision needs: No Questionnaire PHQ-9 Over the last 2 weeks, how often have you been bothered by any of the following problems? 1. Little interest or pleasure in doing things: not at all 2. Feeling down, depressed, or hopeless: not at all 3. Trouble falling or staying asleep, or sleeping too much: not at all 4. Feeling tired or having little energy: not at all 5. Poor appetite or overeating: not at all 6. Feeling bad about yourself - or that you are a failure or have let yourself or your family down: not at all 7. Trouble concentrating on things, such as reading the newspaper or watching television: not at all 8. Moving or speaking so slowly that other people could have noticed. Or the op posite - being so fidgety or restless that you have been moving around a lot more than usual: not at all 9. Thoughts that you would be better off or of hurting yourself in some way: not at all Total score: 0 Depression Screening Interpretation: Negative Depression Screening Done: Yes 79573 - PHQ-9 Billing: Yes Source: Developed by Drs. Eliazar English, Manju Pisano, Noé Riley and colleagues, with an educational dorian from [employer]. Thrive Questionnaire Date Thrive assessed: 06/21/24 I am a: Patient What is your living situation today?: I have a steady place to live Within the past 12 months, did the food you bought not last and you didn't have the money to get more?: I choose not to answer this question Within the past 12 months, did you worry whether your food would run out before you got money to buy more?: I choose not to answer this question Do you have trouble paying for medicines?: No Do you have trouble getting transportation to medical appointments?: No Do you have trouble paying your heating and electricity bill?: No Do you have trouble taking care of your child, family member or friend?: No Do you have trouble with day-to-day activities such as bathing, preparing meals, shopping, managing finances, etc.?: No Are you currently unemployed and looking for a job?: No Are you interested in more education?: No Please select the resources that you would like help with: None Currently or been in a relationship where the following occur: No concerns reported THRIVE Score: 0 AUDIT C Alcohol Use Questionnaire (AUDIT-C) 1. How often do you have a drink containing alcohol?: Monthly or less 2. How many drinks containing alcohol do you have on a typical day when you are drinking?: 3 or 4 3. How often do you have six or more drinks on one occasion?: Less than monthly Total Score: 3 RAFITA-7 AMB Questionnaire RAFITA-7 Date RAFITA - 7 assessed: 06/21/24 Feeling nervous, anxious, or on edge: 0 = Not at all Not being able to stop or control worryin = Not at all Worrying too much about different things: 0 = Not at all Trouble relaxin = Not at all Being so restless that it is hard to sit still: 0 = Not at all Becoming easily annoyed or irritable: 0 = Not at all Feeling afraid as if something awful might happen: 0 = Not at all Total RAFITA-7 score (0-4 normal; 5-9 mild; 10-14 moderate; 15-21 severe): 0 Source: Developed by Drs. Eliazar English, Manju Pisano, Noé Riley and colleagues, with an educational dorian from [employer]. RAFITA-7 Assessment Billing RAFITA-7 Assessment Tool: RAFITA-7 Assessment 69029 Review of Systems Const Denies headache(s) Eyes Denies loss of vision ENT Denies vertigo, Denies dizziness, Denies headache(s) and Denies sore throat Card Denies chest pain, Denies leg edema and Denies lightheadedness Resp Denies cough, Denies hemoptysis and Denies wheezing GI Denies abdominal pain, Denies melena, Denies constipation, Denies diarrhea and Denies vomiting Denies dysuria, Denies urinary frequency and Denies urinary urgency Musc Denies arthralgias, Denies joint swelling, Denies numbness and Denies tingling Neuro Denies Abnormal speech present, Denies behavioral changes, Denies vertigo, Denies dizziness, Denies headache(s), Denies loss of vision, Denies memory loss, Denies numbness and Denies tingling Psych Denies anxiety, Denies behavioral changes, Denies depression, Denies memory loss and Denies panic attacks Kai/Lymph Denies easy bleeding and Denies easy bruising Aller/Immun Denies wheezing Physical exam (Primary Care) Vital Signs: Last Vital Signs Temp 97.1 F 06/21/24 15:56 Pulse 80 06/21/24 15:56 BP 122/82 06/21/24 15:56 Pulse Ox 97 06/21/24 15:56 Oxygen Delivery Method Room Air 06/21/24 15:56 BMI result Body Mass Index 32.2 BMI Assessment/Plan discussion: High BMI High, discussed plan: lifestyle, weight reduction, dietary and physical activity Tobacco/Smoking Status: Tobacco use Status Tobacco use date assessed 06/21/24 06/21/24 16:02 Patient Tobacco Use Status Never used Tobacco 06/21/24 15:58 e-Cigarette/Vaping Use Never Used 06/21/24 15:58 PHQ-9: PHQ-9 Score PHQ-9: Total score 0 06/22/24 07:57 Depression Screening Interpretation: Negative Thrive Assessment: Date of Thrive Assessment Date Thrive assessed 06/21/24 06/21/24 15:58 Currently or been in a relationship where the following occur: No concerns reported Const General: healthy appearing, no acute distress, alert and awake Nutritional Appearance: well nourished Orientation/consciousness: oriented to person, oriented to place and oriented to time HENMT Ears: TM's normal bilaterally General nose exam: Normal nasal mucous membranes and turbinates present Eyes Conjunctivae: conjunctivae normal Sclerae: sclerae normal Pupils: Equal, round and reactive pupils present Neck Neck: Yes no lymphadenopathy and Yes no JVD Thyroid: Thyroid normal Carotids: no bruits Resp Effort & Inspection: normal respiratory effort and not tachypneic Auscultation: no crackles, no rales, no rhonchi and no wheezes Cardio Rate: regular rate Rhythm: regular rhythm Heart sounds: no murmurs and normal S1 and S2 GI Palpation (GI): Soft to palpation, nontender, no hepatomegaly and no splenomegaly Auscultation: normal bowel sounds Skin General skin exam: no rashes or lesions noted and dry skin Neuro General: oriented to person, oriented to place and oriented to time Cranial nerves: Yes Equal, round and reactive pupils present Speech: No Abnormal speech present Gait exam (Neuro): Normal gait present Motor exam (neuro): no tremor noted Extrem Right upper extremity: full ROM Left upper extremity: full ROM Right lower extremity: full ROM; no edema Left lower extremity: full ROM; no edema Psych Mental Status: mental status grossly normal Speech and movement: Normal speech and movement present Affect: normal affect Attitude: cooperative Thought process: Normal thought process present Coding Level of Care Code Est Pt Level 4 (30285) Diagnoses Mixed hyperlipidemia E78.2 Hyperlipidemia type: mixed hyperlipidemia Primary hypertension I10 Hypertension type: primary hypertension Impaired glucose metabolism R73.09 Class 1 obesity E66.811 RAFITA (generalized anxiety disorder) F41.1 Additional Codes RAFITA-7 Assessment Billing - RAFITA-7 Assessment Tool: RAFITA-7 Assessment 98165 ([id number]) PHQ-9 - 00616 - PHQ-9 Billing: Yes ([id number]) Assessment & Plan Assessment & Plan (1) HLD (hyperlipidemia): Code(s): E78.5 - Hyperlipidemia, unspecified Category: Medical Qualifiers: Hyperlipidemia type: mixed hyperlipidemia Qualified Code(s): E78.2 - Mixed hyperlipidemia Plan: Patient's most recent lipid panel showing borderline high cholesterol and elevated triglycerides. We did discuss the need to work on better eating habits and being more physically active to reduce his cholesterol. He is not interested in medication at this time to reduce his cholesterol. He will continue working on lifestyle and dietary modifications with goal total cholesterol to be below 200 and reducing his triglycerides down to 150. (2) HTN (hypertension): Code(s): I10 - Essential (primary) hypertension Category: Medical Qualifiers: Hypertension type: primary hypertension Qualified Code(s): I10 - Essential (primary) hypertension Plan: Patient's blood pressure acceptable today in office. He will continue his current dose of antihypertensive medication with goal blood pressure to remain below 140/90 (3) Impaired glucose metabolism: Code(s): R73.09 - Other abnormal glucose Category: Medical Plan: Patient has a history of impaired glucose metabolism. He has been trying to work on lifestyle and dietary modifications. Will recheck fasting lipids and A1c to evaluate for diabetes. (4) Class 1 obesity: Code(s): E66.811 - Obesity, class 1 Category: Medical Plan: Patient does understand his BMI is over 30 will work on being more physically active and adapting to better eating habits to reduce his weight. (5) RAFITA (generalized anxiety disorder): Code(s): F41.1 - Generalized anxiety disorder Category: Medical Plan: Patient reports his anxiety is fairly well controlled, does use lorazepam on a very limited p.r.n. basis which is effective for him. He otherwise is not interested in daily medication for his anxiety. Orders: Orders Hemoglobin A1c 06/21/24 R73.09 - Other abnormal glucose Lipid Panel 06/21/24 E78.2 - Mixed hyperlipidemia Microalbumin, Random (w Creat) 06/21/24 I10 - Essential (primary) hypertension Comprehensive [place]. Panel Fast 06/21/24 I10 - Essential (primary) hypertension Complete Blood Count no Diff 06/21/24 I10 - Essential (primary) hypertension TSH reflex Free T4 06/21/24 R79.89 - Other specified abnormal findings of blood chemistry Medications: Refilled lisinopril 30 mg PO DAILY 90 tabs 1RF I10 - Essential (primary) hypertension lorazepam 0.5 mg PO DAILY PRN 5 tabs 0RF anxiety 5 days F40.10 - Social phobia, unspecified metoprolol succinate ER 100 mg PO DAILY 90 tabs 1RF I10 - Essential (primary) hypertension valacyclovir (Valtrex) 500 mg PO BID 12 tabs 0RF 6 days B00.9 - Herpesviral infection, unspecified Patient Instructions: :Goal blood pressure to remain below 140/90 Barriers: Adherence to physical activity and healthy eating habits
== END 2024-06-21 16:31 | disposition home or self-care (01) ==
PROVIDERS: PCP Physician Assistant; Visit Provider Physician Assistant
DX: E78.2 Mixed hyperlipidemia (principal); R73.09 Other abnormal glucose; E66.811 Obesity, class 1; Z68.32 Body mass index [BMI] 32.0-32.9, adult; I10 Essential (primary) hypertension; F41.1 Generalized anxiety disorder

== ENCOUNTER → 2024-06-21 15:50 | Outpatient (BNVA) | payer BC, SELFPAY | PROVIDERS: PCP Physician Assistant; Visit Provider Physician Assistant | DX: I10 Essential (primary) hypertension (principal); E78.2 Mixed hyperlipidemia; R73.09 Other abnormal glucose; E66.811 Obesity, class 1; Z68.32 Body mass index [BMI] 32.0-32.9, adult; F41.1 Generalized anxiety disorder; Z79.899 Other long term (current) drug therapy | CPT/HCPCS: 96127 ==

== ENCOUNTER 2024-08-05 08:22 | Outpatient (REF) | payer BC, SELFPAY ==
[2024-08-05 08:49] LABS: MANUAL DIFF FLAG NO
[2024-08-05 09:38] LABS: Basophils Percent Auto 0.6 % (0-2); Eosinophils Absolute Auto 0.1 X10*3/uL (0.0-0.4); Eosinophils Percent Auto 2.5 % (0-4); Hematocrit 42.8 % (42.0-52.0); Hemoglobin 15.5 g/dl (14.0-18.0); Imm Gran Abs Auto 0.02 X10*3/uL (0.00-0.03); Imm Gran Pct Auto 0.4 % (0.0-0.4); Lymphocytes Absolute Auto 1.8 X10*3/uL (1.2-4.9); Lymphocytes Percent Auto 34.1 % (20-40); Mean Corpuscular HGB Conc 36.2 g/dl (31.0-36.0); Mean Corpuscular Hemoglobin 30.9 pg (27.0-33.0); Mean Corpuscular Volume 85.3 fL (80.0-98.0); Mean Platelet Volume 10.5 fL (9.4-12.4); Monocytes Absolute Auto 0.6 X10*3/uL (0.1-1.2); Monocytes Percent Auto 11.2 % (2-11); Neutrophils Absolute Auto 2.7 x10*3/uL (2.0-8.3); Neutrophils Percent Auto 51.2 % (45-73); Platelet Count 261 X10*3/uL (160-400); Red Blood Count 5.02 X10*6/uL (4.60-5.80); Red Cell Distribution Width 11.7 % (11.0-16.0); White Blood Count 5.3 X10*3/uL (4.8-10.8)
[2024-08-05 09:49] LABS: Estimated Average Glucose 108 mg/dL; Hemoglobin A1C 141.8778 umol/L; Hemoglobin A1c % 5.4 % (<6.0)
[2024-08-05 10:21] LABS: Alanine Aminotransferase 55 U/L (0-40); Albumin Level 4.4 g/dL (3.5-5.0); Alkaline Phosphatase 59 U/L (39-117); Anion Gap 11 (12-20); Aspartate Amino Transferase 39 U/L (5-37); Bilirubin Total 1.2 mg/dL (0.0-1.0); Blood Urea Nitrogen 14 mg/dL (9-16); Calcium 9.3 mg/dL (8.4-10.2); Carbon Dioxide 27 mmol/L (22-29); Chloride 105 mmol/L (96-108); Cholesterol 129 mg/dL (<200); Estimated Glomerular Filt Rate > 60; Glucose Fasting 101 mg/dL (60-99); Glucose Random 100 mg/dL (60-115); HDL Cholesterol 43 mg/dL (>40); LDL Cholesterol Calculated 73 mg/dL (<100); Sodium 139 mmol/L (135-145); Total Protein 6.8 g/dL (6.5-8.0); Triglycerides 66 mg/dL (<150)
[2024-08-05 11:12] LABS: Creatinine Urine 277.29 mg/dL; Microalbum/Creatinine Ratio Ur 3.2 ug/mg cr (<30)
== END 2024-08-05 08:23 | disposition home or self-care (01) ==
LOC: HO.LAB 08:22
PROVIDERS: PCP Physician Assistant; Visit Provider Physician Assistant
DX: E78.2 Mixed hyperlipidemia (principal); R79.89 Other specified abnormal findings of blood chemistry; R73.09 Other abnormal glucose; I10 Essential (primary) hypertension; K52.9 Noninfective gastroenteritis and colitis, unspecified
CPT/HCPCS: 36415; 80048; 80053; 80061; 82043; 82570; 83036; 84443; 85025; 85027

== ENCOUNTER 2024-08-06 09:36 | Outpatient (REF) | payer BC, SELFPAY ==
[2024-08-06 12:30] LABS: CDiff Gene PCR NEGATIVE (Negative)
[2024-08-07 11:55] LABS: Adenovirus F 40/41 Not Detected (Not Detect.); Astrovirus Detected (Not Detect.); Campylobacter Not Detected (Not Detect.); Cryptosporidium Not Detected (Not Detect.); Cyclospora cayetanensis Not Detected (Not Detect.); E. coli EAEC Not Detected (Not Detect.); E. coli EPEC Not Detected (Not Detect.); E. coli ETEC Not Detected (Not Detect.); E. coli STEC Not Detected (Not Detect.); Entamoeba histolytica Not Detected (Not Detect.); Giardia lamblia Not Detected (Not Detect.); Norovirus GI/GII Not Detected (Not Detect.); Plesiomonas shigelloides Not Detected (Not Detect.); Rotavirus A Not Detected (Not Detect.); Salmonella Not Detected (Not Detect.); Sapovirus Not Detected (Not Detect.); Shigella sp./EIEC Not Detected (Not Detect.); Vibrio Not Detected (Not Detect.); Vibrio Cholerae Not Detected (Not Detect.); Yersinia enterocolitica Not Detected (Not Detect.)
== END 2024-08-06 09:37 | disposition home or self-care (01) ==
LOC: HO.LNP 09:36
PROVIDERS: Visit Provider Physician Assistant
DX: K52.9 Noninfective gastroenteritis and colitis, unspecified (principal)
CPT/HCPCS: 87493; 87507